=== PATIENT | male | born 1960 | race Caucasian/White ===

== ENCOUNTER → 2017-02-27 | Outpatient (CLI) | payer MEDICARE, OTHER ==
[~2017-02-27] MED LIST: ATEN-100 PO; BUPR150T3 PO; ETOD400T PO; GABA300 PO; LORT5TAB PO; OMEP20TA OR; SERT100 PO
--- NOTE | 2017-02-27 11:34 | RADRPT ---
EXAM DATE/TIME: 02/27/2017 00:00 [place] COMPARISON: No previous studies available for comparison. INDICATIONS : Dysphagia. FLUORO TIME: 0.5 minutes IMAGE COUNT: 0 CONTRAST: Dose as prescribed by speech pathologist. MEDICAL HISTORY : None. SURGICAL HISTORY : thyroid bx 3 years ago, area disappeared, dilitation ENCOUNTER: Initial ACUITY: >1 year PAIN SCORE: 0/10 LOCATION: Bilateral neck FINDINGS: A modified barium swallow was performed with speech pathology. Patient was given a variety of liquids to swallow. No evidence of aspiration. For a full detailed report, see report by the speech pathologist. CONCLUSION: No evidence of aspiration. Please see detailed report by speech pathologist. Chapincito Boss MD on February 27, 2017 at 11:32 Board Certified Radiologist. This report was verified electronically.
== END ==
LOC: HRAD 09:56
PROVIDERS: ATTEND Internal Medicine Gastroenterology
DX: R13.13 Dysphagia, pharyngeal phase (principal)
CPT/HCPCS: 74230; 92611; G8996; G8997; G8998